=== PATIENT | male | born 2000 | race Caucasian/White ===

== ENCOUNTER 2024-08-12 06:40 | Emergency (ER) | payer SELFPAY ==
[2024-08-12 06:41] VITALS: BP 139/105; PULSE 112; RESP 20; TEMP 36.9; O2SAT 98
--- NOTE | 2024-08-12 06:57 | EDS_ITS ---
HPI HPI - URI History of Present Illness Chief Complaint: Sore Throat Informant: patient Narrative Narrative: 2 days of sore throat with odynophagia, feeling like his throat is swollen, neck soreness, some headaches, no cough, and some subjective fevers. No nausea, vomiting, abdominal pain. Has had mono before does not feel like he is that fatigued. ROS ROS ED Constitutional Constitutional ED: Reports chills, fever(s), malaise and subjective ENT ENT ED: Reports nasal congestion and sore throat; Denies ear pain Respiratory/Chest Respiratory/Chest: Denies cough or dyspnea Gastrointestinal Gastrointestinal: Denies abdominal pain, nausea or vomiting Musculoskeletal Musculoskeletal: Reports neck pain Integumentary Denies abscess or rash Neurologic Neurologic: Reports headache(s); Denies paresthesias or weakness PFSH PFSH Medical History no medical history no medical history Home Medications ?Medication ?Instructions ?Recorded ?Last Taken ?Type cephalexin 500 mg capsule 500 mg PO Q6 #40 CAPSULES 08/12/24 Unknown Rx Allergy/AdvReac Type Severity Reaction Status Date / Time No Known Allergies Allergy Verified 08/12/24 06:43 Surgical History no surgical history Social History Smoking Status: Never smoker EXAM Physical Exam Const Vital Signs: 08/12/24 06:41 Temperature 98.4 F Temperature Source Oral Pulse Rate 112 H Respiratory Rate 20 H Blood Pressure 139/105 H Blood Pressure Mean 116 Pulse Ox 98 Positive well nourished and well developed General Appearance ED: well developed and NAD HEENT Reports moist mucous membranes HEENT Narrative: No trismus Throat: tonsils abnormal bilateral erythema, exudates and hypertrophy (A little more prominent on the right, but tonsils not touching uvula at midline) Eyes PERRL and EOMs intact bilaterally Neck supple and no meningeal signs Neck Narrative: Bilateral submandibular tender lymphadenopathy Resp normal respiratory effort and clear to auscultation bilaterally Cardio Rate: regular rate Rhythm: regular rhythm GI non-tender and non-distended Extremity normal to inspection and full ROM Neuro oriented x3, CN's II-XII intact bilaterally and no sensory deficits noted Motor Exam: strength 5/5 throughout Psych mental status grossly normal Skin Lesions: no lesions Rashes: no rashes MDM MDM MDM Narrative Medical decision making narrative: Although mononucleosis is in the differential diagnosis, this is most likely strep throat. We sent a PCR. However it is negative. This rules out streptococcus pyogenes, but given his exam and bilateral exudative tonsillitis I am going to treat group B strep and other bacterial causes with cephalexin as well as a dose of dexamethasone. He is comfortable with that plan. Discharge Plan Triage Chief Complaint: Sore Throat ED Provider: Karlos Thornton Dx/Rx/DC Orders Clinical Impression: Exudative tonsillitis, Cellulitis of tonsil Instructions: Tonsillitis in Adults Prescriptions: New cephalexin 500 mg capsule 500 mg PO Q6 Qty: 40 0RF Primary Care Provider: Care Physician,No Primary Referrals: Ovi Grace MD [Med Staff - Active Staff] - 1 Week if not improving Print Language: Mongolian Disposition Disposition: Home, Self Care
[2024-08-12] MEDS: dexAMETHasone 4 MG Tablet 8 MG PO (07:37)
[2024-08-12] MEDS: Cephalexin 250 MG Capsule 500 MG PO (07:37)
== END 2024-08-12 07:39 | disposition home or self-care (01) ==
PROVIDERS: Emergency Provider Emergency Medicine; Visit Provider Emergency Medicine
DX: J03.90 Acute tonsillitis, unspecified (principal)
CPT/HCPCS: 87651; 99283